=== PATIENT | female | born 1985 | race Caucasian/White ===

== ENCOUNTER 2019-01-30 19:50 | Emergency (ER) | payer OTHER ==
[2019-01-30 19:57] VITALS: TEMP 98.3; BMI 37.4
[2019-01-30 20:34] VITALS: BP 132/89; PULSE 87
[2019-01-30] MEDS ORDERED: morphine CARPU-JECT 2 MG/1 ML DISP.SYRIN IVPUSH ONE (20:36)
[2019-01-30] MEDS ORDERED: ONDANSETRON 4 MG/2 ML VIAL IVPUSH ONE (20:36)
[2019-01-30] MEDS ORDERED: SODIUM CHLORIDE 1,000 ML IV ONE (20:36)
[2019-01-30] MEDS ORDERED: morphine SULFATE 4 MG/ML VIAL ONE (20:43)
[2019-01-30 21:05] LABS: BASO % 0.5 % (0-2.0); EOS % 3.1 % (0-4.5); HEMATOCRIT 45.4 % (32.4-45.2); MCH 28.3 pg (25.7-33.7); MEAN CELL VOLUME 85.6 fl (80-96); MEAN PLT VOLUME 8.2 fl (7.5-11.1); MONO % 5.9 % (3.8-10.2); NEUT % 72.5 % (42.8-82.8); PLATELET COUNT 359 K/MM3 (134-434); RDW 13.3 % (11.6-15.6); WHITE BLOOD COUNT 11.5 K/mm3 (4.0-10.8)
[2019-01-30 21:09] LABS: ALBUMIN 4.1 g/dl (3.4-5.0); BILIRUBIN,TOTAL 0.8 mg/dl (0.2-1); CALCIUM 9.6 mg/dl (8.5-10); CREATININE 0.8 mg/dl (0.55-1.3); TOT PROT 7.9 g/dl (6.4-8.2)
--- NOTE | 2019-01-30 22:47 | PDOC ---
Documentation entered by Korin Chiu SCRIBE, acting as scribe for Gemini Ricardo MD. Gemini Ricardo MD: This documentation has been prepared by the Apple barrera Brenda, SCRIBE, under my direction and personally reviewed by me in its entirety. I confirm that the documentation accurately reflects all work , treatment, procedures, and medical decision making performed by me. History of Present Illness - General Chief Complaint: Pain Stated Complaint: ABD PAIN, DIZZY, COUGH Time Seen by Provider: 01/30/19 19:52 History Source: Patient Exam Limitations: No Limitations - History of Present Illness Initial Comments: 01/30/19 20:09 The patient is a 34 year old female, with a significant PMH of syncope and eclampsia who presents to the emergency department, sent from urgent care with multiple episodes of vomiting since yesterday accompanied with nausea and abdominal pain. As per patient, she had to leave work yesterday due to excessive vomiting and coughing. The patient reports going to Urgent care today around 5:00pm, where she gave urine and was told to come to the ED. She reports vomiting on the way to the ED, while in the car. The patient denies chest pain, shortness of breath, headache. Denies fever, diarrhea and constipation. Denies dysuria, frequency, urgency and hematuria. Allergies: NKA Past surgical history: None reported Social history: No reported General: No fevers or chills, no weakness, no weight loss HEENT: (+) Coughing. No change in vision. No sore throat,. No ear pain CardioVascular: No chest pain or shortness of breath Respiratory:No cough, or wheezing. Gastrointestinal: (+) Nausea (+) Vomiting (+) Abdominal pain. no diarrhea or constipation, No rectal bleeding Genitourinary: No dysuria, hematuria, or frequency Musculoskeletal: No joint or muscle pain or swelling Neurologic: No headache, vertigo, loss of consciousness Psychiatric: nor depression Skin: No rashes or easy bruising Endocrine: no increased thirst or abnormal weight change Allergic: no skin or latex allergy All other systems reviewed and normal GENERAL: The patient is awake, alert, and fully oriented, in no acute distress. HEAD: Normal with no signs of trauma. EYES: Pupils equal, round and reactive to light, extraocular movements intact, sclera anicteric, conjunctiva clear. ABDOMEN: (+) Tenderness on palpation diffusely but more on right lower quadrant with mild guarding and rebound (+)Bowel sounds slightly decreased but present. EXTREMITIES: Normal range of motion, no edema. NEUROLOGICAL: Normal speech, normal gait. PSYCH: Normal mood, normal affect. SKIN: Warm, Dry, normal turgor, no rashes or lesions noted. 01/30/19 22:45 The CAT scan shows no acute pathology,appendicitis there is a large amount of air however there is no obstruction. There is a small cyst on the right ovary with a little bit of free fluid in the pelvis is most likely is the cause of her discomfort in the right lower quadrant. There is some atelectasis/scarring in the lungs otherwise normal CAT scan Patient feels betters had no further vomiting and will be discharged. Patient will follow-up with her primary care doctor and her OB. Past History - Past Medical History Allergies/Adverse Reactions: Allergies Allergy/AdvReac Type Severity Reaction Status Date / Time latex Allergy Verified 01/30/19 19:51 pineapple Allergy Verified 01/30/19 19:51 Home Medications: Ambulatory Orders NK [No Known Home Medication] 01/30/19 *Physical Exam - Vital Signs Last Vital Signs Temp Pulse Resp BP Pulse Ox 98.3 F 87 18 132/89 97 01/30/19 20:30 01/30/19 20:30 01/30/19 19:50 01/30/19 20:30 01/30/19 20:30 ED Treatment Course - LABORATORY CBC & Chemistry Diagram: 01/30/19 20:40 01/30/19 20:40 - ADDITIONAL ORDERS Additional order review: Laboratory Results 01/30/19 01/30/19 01/30/19 20:40 20:40 20:16 Sodium 134 L Potassium 4.0 Chloride 101 Carbon Dioxide 26 Anion Gap 7 L BUN 11.0 Creatinine 0.8 Est GFR (CKD-EPI)AfAm 113.06 Est GFR (CKD-EPI)NonAf 97.55 Random Glucose 89 Calcium 9.6 Total Bilirubin 0.8 AST 17 ALT 14 Alkaline Phosphatase 69 Total Protein 7.9 Albumin 4.1 Lipase 112 Urine Color Yellow Urine Appearance Clear Urine pH 6.0 Urine Protein Negative Urine Glucose (UA) Negative Urine Ketones Negative Urine Blood Negative Urine Nitrite Negative Urine Bilirubin Negative Urine Urobilinogen 0.2 Ur Leukocyte Esterase Negative Urine HCG, Qual 01/30/19 20:16 Sodium Potassium Chloride Carbon Dioxide Anion Gap BUN Creatinine Est GFR (CKD-EPI)AfAm Est GFR (CKD-EPI)NonAf Random Glucose Calcium Total Bilirubin AST ALT Alkaline Phosphatase Total Protein Albumin Lipase Urine Color Urine Appearance Urine pH Urine Protein Urine Glucose (UA) Urine Ketones Urine Blood Urine Nitrite Urine Bilirubin Urine Urobilinogen Ur Leukocyte Esterase Urine HCG, Qual Negative 01/30/19 20:40 RBC 5.30 H MCV 85.6 MCHC 33.0 RDW 13.3 MPV 8.2 Neutrophils % 72.5 Lymphocytes % 18.0 Monocytes % 5.9 Eosinophils % 3.1 Basophils % 0.5 - RADIOLOGY Radiology Studies Ordered: Category Date Time Status ABDOMEN & PELVIS CT WITH CONTR [CT] Stat CT Scan 01/30/19 20:37 Completed - Medications Given in the ED: ED Medications Discontinued Medications Generic Name Dose Route Start Last Admin Trade Name Freq PRN Reason Stop Dose Admin Sodium Chloride 1,000 mls @ 1,000 mls/hr 01/30/19 20:36 01/30/19 20:35 Normal Saline - IV 01/30/19 21:35 1,000 mls/hr .Q1H ONE Administration Morphine Sulfate 2 mg 01/30/19 20:36 01/30/19 20:48 Morphine Injection - IVPUSH 01/30/19 20:37 2 mg ONCE ONE Administration Ondansetron HCl 4 mg 01/30/19 20:36 01/30/19 20:38 Zofran Injection IVPUSH 01/30/19 20:37 4 mg ONCE ONE Administration *DC/Admit/Observation/Transfer Diagnosis at time of Disposition: Abdominal pain Qualifiers: Abdominal location: right lower quadrant Qualified Code(s): R10.31 - Right lower quadrant pain - Discharge Dispostion Disposition: HOME Condition at time of disposition: Stable Decision to Admit order: No - Referrals - Patient Instructions Additional Instructions: Is important that you follow-up with your OB as well as your primary care doctor.. Return to the emergency department immediately with ANY new, persistent or worsening symptoms. Continue any medications as previously prescribed by your physician. You should follow up with your primary doctor as soon as possible regarding today's emergency department visit. . Please make sure your doctor reviews the results of your emergency evaluation. Thank you for coming to the Emergency Department today for your care. It was a pleasure to see you today. Please note that your evaluation is INCOMPLETE until you follow-up with your doctor. - Post Discharge Activity
[2019-01-30] MEDS ORDERED: ONDANSETRON *ODT* 4 MG TABLET SL ONE (22:52)
[2019-01-30] MEDS ORDERED: ONDANSETRON *ODT* 4 MG TABLET ONE (22:54)
== END 2019-01-30 22:48 | disposition home or self-care (01) ==
LOC: FER 19:50
PROC: 3E033NZ Introduction of Analgesics, Hypnotics, Sedatives into Peripheral Vein, Percutaneous Approach (ICD-10-PCS; principal; 2019-01-30)
PROC: 3E033GC Introduction of Other Therapeutic Substance into Peripheral Vein, Percutaneous Approach (ICD-10-PCS; 2019-01-30)
PROC: 3E0337Z Introduction of Electrolytic and Water Balance Substance into Peripheral Vein, Percutaneous Approach (ICD-10-PCS; 2019-01-30)
DX: R10.31 Right lower quadrant pain (principal)
CPT/HCPCS: 36415; 74177-TC; 80053; 81003; 83690; 84703; 85025; 99284-25; J7030; Q0162